=== PATIENT | female | born 1965 | race Caucasian/White ===

== ENCOUNTER 2019-05-21 23:46 | Inpatient (IN) ==
[2019-05-22] MEDS ORDERED: cefTRIAXone SODIUM 1,000 MG/50 ML BAG IV STA (00:04)
[2019-05-22] MEDS ORDERED: SODIUM CHLORIDE 0.9% 1000ML 1,000 ML IV ONE (00:04)
[2019-05-22 00:36] LABS: Basophils # (auto) 0.07 K/uL (0-0.2); Basophils % (auto) 0.8 %; Eosinophils # (auto) 0.41 K/uL (0-0.5); Eosinophils % (auto) 4.8 %; Hematocrit (blood only) 35.7 % (37-47); Hemoglobin 11.9 g/dL (12.0-16.0); Immature Granulocytes # (auto) 0.02 K/uL (0.00-0.02); Immature Granulocytes % (auto) 0.2 %; Lymphocytes # (auto) 1.86 K/uL (1.2-3.4); Lymphocytes % (auto) 21.8 %; Mean Corpuscular Hgb Conc 33.3 g/dL (32-36); Mean Platelet Volume 9.8 fL (7.4-10.4); Monocytes # (auto) 1.05 K/uL (0.11-0.59); Monocytes % (auto) 12.3 %; Neutrophils # (auto) 5.12 K/uL (1.4-6.5); Neutrophils % (auto) 60.1 %; Platelet Count 376 K/uL (130-400); RDW Coefficient of Variation 12.4 % (11.5-14.5); RDW Standard Deviation 42.3 fL (36.4-46.3); Red Blood Count 3.84 M/uL (4.2-5.4); White Blood Count 8.53 K/uL (4.8-10.8)
[2019-05-22 00:54] LABS: Alanine Aminotransferase 93 U/L (12-78); Albumin Level 2.9 gm/dl (3.4-5.0); Aspartate Aminotransferase 29 U/L (15-37); BUN Creatinine Ratio 17.8 (10-20); Bilirubin Direct < 0.1 mg/dl (0-0.2); Blood Urea Nitrogen 10 mg/dl (7-18); Carbon Dioxide 26 mmol/L (21-32); Chloride 108 mmol/L (98-107); Creatinine Clr Calc Pharmacy 109.4 ml/min; Est GFR (African American) 119.6; Est GFR (Non-African American) 103.2; Glucose 111 mg/dl (70-99); Magnesium 2.1 mg/dl (1.8-2.4); Potassium 4.1 mmol/L (3.5-5.1); Sodium 142 mmol/L (136-145)
[2019-05-22 00:57] LABS: Alkaline Phosphatase 325 U/L (45-117); Bilirubin,Total 0.2 mg/dl (0.2-1); Total Protein 7.3 gm/dl (6.4-8.2)
--- NOTE | 2019-05-22 01:43 | History & Physical Report ---
Date of Service May 22, 2019 Assessment & Plan (1) Gram-negative bacteremia: No overt sepsis ? Complicated UTI as source (Of note, two urine cultures without growth.) Rule out spinal osteomyelitis R low back pain complaints Abnormal LFTs to illness Some improvement on today's blood work Transient elevation in the past as per patient GMF Follow blood cultures IV Cefepime ID consult RE gram-negative bacteremia Lumbar spine MRI Further management pending work-up results and ID recommendations. DVT prophylaxis Lovenox subcu Full code History of Present Illness Chief Complaint: Abnormal blood work Primary Care Provider: Víctor Langford MD History obtained from patient and records. 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 Ten days hx achy low right flank pain symptoms, headache, neck pain, fatigue symptoms. No chest pain, no S OB, no cough. Low-grade fever at home. Patient seen at PCP's office last week. Lyme screen and mono test negative. WBC esterase noted on UA. Urine cultures later no growth. Patient started on Bactrim without improvement of symptoms. Patient seen at the ER last week for persistent symptoms. Urinalysis noted to be abnormal. Urine cultures later no growth. Bactrim switched to Keflex for cystitis due to some LFT abnormalities. Patient returned to ER yesterday morning for worsening symptoms with transient hemorrhoidal bleed. CT abdomen pelvis unremarkable. One bottle of blood cultures later showed gram negative rods. Patient requested to return to the emergency room. Given IV Ceftriaxone at the ER. 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 Allergies Allergy/AdvReac Type Severity Reaction Status Date / Time Penicillins AdvReac Mild Hives Unverified 05/22/19 00:18 Home Medications Home Medications Medication Instructions Recorded Confirmed Type No Known Home Medications 05/22/19 05/22/19 History Past Med/Surg History Medical History Varicose vein of leg Social History Preferred Language: Khmer Communication Ability: Effective 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 Beliefs That Will Affect Care: None marital status: Current Living Situation: Spouse Other Information That Helps Us Care for You: No Feels Safe at Home: Yes Safety Concerns: Feels Safe At This Time Smoking Status: Never smoker Hx Alcohol Use: No Hx Substance Use: No Review of Systems Review of Systems: As per HPI, all 10 systems reviewed, all other ROS negative Physical Exam Physical Exam: GENERAL: Slightly uncomfortable, pleasant, no respiratory distress SKIN: Normal color, warm HEENT: [place] palpebral conjunctivae, no ptosis, moist buccal mucosa NECK : Supple, posterior cervical tenderness CHEST : CTA, no tenderness HEART : RRR, no obvious murmurs ABDOMEN: Soft, nontender BACK : R gluteal tenderness, negative straight leg raise test EXTREMITIES : No LE swelling/tenderness, no other conspicuous deformities noted NEUROLOGIC : Coherent, no facial asymmetry, no other gross focality Results & Data Vital Signs (Past 12 Hours) Vital Signs Temp Pulse Resp BP Pulse Ox 05/21/19 23:54 37.2 C 89 18 122/85 97 Laboratory Results Laboratory Results WBC 8.53 K/uL (4.8-10.8) 05/22/19 00:08 RBC 3.84 M/uL (4.2-5.4) L 05/22/19 00:08 Hgb 11.9 g/dL (12.0-16.0) L 05/22/19 00:08 Hct 35.7 % (37-47) L 05/22/19 00:08 MCV 93.0 fL (80-100) 05/22/19 00:08 MCH 31.0 pg (25-34) 05/22/19 00:08 MCHC 33.3 g/dL (32-36) 05/22/19 00:08 RDW Std Deviation 42.3 fL (36.4-46.3) 05/22/19 00:08 RDW Coeff of Jesse 12.4 % (11.5-14.5) 05/22/19 00:08 Plt Count 376 K/uL (130-400) 05/22/19 00:08 MPV 9.8 fL (7.4-10.4) 05/22/19 00:08 Immature Gran % (Auto) 0.2 % 05/22/19 00:08 Neut % (Auto) 60.1 % 05/22/19 00:08 Lymph % (Auto) 21.8 % 05/22/19 00:08 [place] % (Auto) 12.3 % 05/22/19 00:08 Eos % (Auto) 4.8 % 05/22/19 00:08 Baso % (Auto) 0.8 % 05/22/19 00:08 Immature Gran # (Auto) 0.02 K/uL (0.00-0.02) 05/22/19 00:08 Neut # (Auto) 5.12 K/uL (1.4-6.5) 05/22/19 00:08 Lymph # (Auto) 1.86 K/uL (1.2-3.4) 05/22/19 00:08 [place] # (Auto) 1.05 K/uL (0.11-0.59) H 05/22/19 00:08 Eos # (Auto) 0.41 K/uL (0-0.5) 05/22/19 00:08 Baso # (Auto) 0.07 K/uL (0-0.2) 05/22/19 00:08 Sodium 142 mmol/L (136-145) 05/22/19 00:08 Potassium 4.1 mmol/L (3.5-5.1) 05/22/19 00:08 Chloride 108 mmol/L (98-107) H 05/22/19 00:08 Carbon Dioxide 26 mmol/L (21-32) 05/22/19 00:08 Anion Gap 8.0 (3-11) 05/22/19 00:08 BUN 10 mg/dl (7-18) 05/22/19 00:08 Creatinine 0.59 mg/dl (0.6-1.2) L 05/22/19 00:08 Est Cr Clr Drug Dosing 109.4 ml/min 05/22/19 00:08 Est GFR ( Amer) 119.6 05/22/19 00:08 Est GFR (Non-Af Amer) 103.2 05/22/19 00:08 BUN/Creatinine Ratio 17.8 (10-20) 05/22/19 00:08 Glucose 111 mg/dl (70-99) H 05/22/19 00:08 Lactate 1.0 mmol/L (0.4-2.0) 05/22/19 00:08 Calcium 9.0 mg/dl (8.5-10.1) 05/22/19 00:08 Magnesium 2.1 mg/dl (1.8-2.4) 05/22/19 00:08 Total Bilirubin 0.2 mg/dl (0.2-1) 05/22/19 00:08 Direct Bilirubin < 0.1 mg/dl (0-0.2) 05/22/19 00:08 AST 29 U/L (15-37) 05/22/19 00:08 ALT 93 U/L (12-78) H 05/22/19 00:08 Alkaline Phosphatase 325 U/L (45-117) H 05/22/19 00:08 Total Protein 7.3 gm/dl (6.4-8.2) 05/22/19 00:08 Albumin 2.9 gm/dl (3.4-5.0) L 05/22/19 00:08 Lipase 84 U/L (73-393) 05/22/19 00:[address] head initial read no ICH, mass-effect, or edema. No skull fracture. CT cervical spine initial read: Straightening of the cervical spine, no acute fracture.
[2019-05-22] MEDS ORDERED: KETOROLAC TROMETHAMINE 15 MG/ML VIAL IV ONE (01:44)
--- NOTE | 2019-05-22 01:52 | Emergency Department Note ---
Entered by Anali Wong acting as a scribe for AshliRigo bliss History of Present Illness General Chief complaint: Referred by Doctor Stated complaint: BLOOD INFECTION,ANTIBIOTICS,TOLD TO COME IN Time Seen by Provider: 05/22/19 00:00 Source: patient History of Present Illness Provider complaint: flank pain Onset (ago): day(s) 1 Location: back Severity: similar to prior episodes Pain Consistency: + other (persistent) Maximum Pain Intensity: 3 Associated symptoms: + fever/chills and + other (-diarrhea, +bloody stool); no nausea/vomiting The patient is a 53 year old female who presents to the Emergency Room with complaints of persistent flank pain. The patient reports that she was here the other day with similar symptoms and they have not resolved. The patient states that she has a fever and bloody stool. She denies any nausea, vomiting, or diarrhea. Home Medications Home Medications Medication Instructions Recorded Confirmed Type No Known Home Medications 05/22/19 05/22/19 History Allergies Allergy/AdvReac Type Severity Reaction Status Date / Time Penicillins AdvReac Mild Hives Unverified 05/22/19 00:18 Past Med/Surg History Medical History Varicose vein of leg Social History Preferred Language: Bhutanese marital status: Feels Safe at Home: Yes Smoking Status: Never smoker Review of Systems See HPI for pertinent positives & negatives. Physical Exam Vital Signs Vital Signs - 24 hr 05/21/19 23:54 Temperature 37.2 C Temperature Source Oral Sepsis Recent Fever Within 48 Hours Yes Sepsis New/Unexplained Change in Mental Status No Sepsis Action Taken by Nursing No Action Required Pulse Rate 89 Respiratory Rate 18 Respiratory Effort / Characteristics Non-Labored Respiratory Depth Normal Blood Pressure 122/85 Blood Pressure Mean 97 Pulse Oximetry 97 Oxygen Delivery Method Room Air GENERAL: She is oriented to person, place, and time. She appears well-developed and well-nourished. She does not appear distressed. HENT: Exam performed. Head: Normocephalic and atraumatic. Right Ear: External ear normal. No mastoid tenderness. Left Ear: External ear normal. No mastoid tenderness. Mouth/Throat: The oropharynx is clear and moist. No trismus in the jaw. No dental abscesses or uvula swelling. No oropharyngeal exudate or tonsillar abscesses. EYES: Conjunctivae and EOM are normal. Pupils are equal, round, and reactive to light. Right eye exhibits no discharge. Left eye exhibits no discharge. No scleral icterus. NECK: Normal range of motion. Neck supple. No JVD present. No spinous process tenderness present. No carotid bruit present. No rigidity. No tracheal deviation and normal range of motion present. No Brudzinski's sign and no Kernig's sign noted. CV: Normal rate, regular rhythm, normal heart sounds and intact distal pulses. There is no peripheral edema. Palpable radial pulses bue. PULM/CHEST: Effort normal and breath sounds normal. No respiratory distress. No stridor. She has no wheezes. She has no rales. Chest Wall: She exhibits no tenderness. ABD: The abdomen is soft. Bowel sounds are normal. She has no distension. No mass is present. There is no tenderness. There is no rebound, no guarding, no Coppola's sign and no tenderness at McBurney's point. Rovsig negative MUSC/SKEL: Normal range of motion. There is no peripheral edema, tenderness or deformity. LYMPH: No cervical adenopathy. NEURO: She is alert and oriented to person, place, and time. She has normal strength. No cranial nerve deficit or sensory deficit. Coordination and gait normal. GCS eye subscore is 4. GCS verbal subscore is 5. GCS motor subscore is 6. cerbellar tests wnl. SKIN: Skin is warm and dry. She is not diaphoretic. PSYCH: She has a normal mood and affect. Her behavior is normal. Judgment and thought content normal. Course 0001: The patient was evaluated in room A9B, and a complete history and physical examination were performed. EMR reviewed, the patient was seen yesterday and the day before in the ED for flank pain and fevers. She had a normal WBC. She was switched from Bactrim to Keflex. The CT done on 05/21/19 was negative and the blood culture that was conducted on May 21 grew out gram negative bacilli which is why the patient was called back to the emergency department. The patient will be admitted to Dr. Best. She was given Rocephin for the gram-negative bacilli in her blood. 0009: [facility] He will evaluate the patient for further management. Administered Medications Discontinued Medications Sodium Chloride (Nss 1000ml) 1,000 mls @ 999 mls/hr IV .[id number] ONE Stop: 05/22/19 01:04 Last Admin: 05/22/19 00:24 Dose: 999 mls/hr Documented by: [id number] Ceftriaxone Sodium (Rocephin) 1,000 mg in 50 mls @ 100 mls/hr IV NOW STA Stop: 05/22/19 00:33 Last Admin: 05/22/19 00:27 Dose: 100 mls/hr Documented by: [id number] Medical Decision Making Medical Records Attestation: I reviewed the patient's medical records. Home Medications Current Medication List: was personally reviewed by me Laboratory Data Attestation: I reviewed the patient's lab results. Result diagrams: 05/22/19 00:08 05/22/19 00:08 Lab Results 05/22/19 05/22/19 05/22/19 Range/Units 00:08 00:08 00:08 WBC 8.53 (4.8-10.8) K/uL RBC 3.84 L (4.2-5.4) M/uL Hgb 11.9 L (12.0-16.0) g/dL Hct 35.7 L (37-47) % MCV 93.0 (80-100) fL MCH 31.0 (25-34) pg MCHC 33.3 (32-36) g/dL RDW Std Deviation 42.3 (36.4-46.3) fL RDW Coeff of Jesse 12.4 (11.5-14.5) % Plt Count 376 (130-400) K/uL MPV 9.8 (7.4-10.4) fL Immature Gran % (Auto) 0.2 % Neut % (Auto) 60.1 % Lymph % (Auto) 21.8 % [place] % (Auto) 12.3 % Eos % (Auto) 4.8 % Baso % (Auto) 0.8 % Immature Gran # (Auto) 0.02 (0.00-0.02) K/uL Neut # (Auto) 5.12 (1.4-6.5) K/uL Lymph # (Auto) 1.86 (1.2-3.4) K/uL [place] # (Auto) 1.05 H (0.11-0.59) K/uL Eos # (Auto) 0.41 (0-0.5) K/uL Baso # (Auto) 0.07 (0-0.2) K/uL Sodium 142 (136-145) mmol/L Potassium 4.1 (3.5-5.1) mmol/L Chloride 108 H (98-107) mmol/L Carbon Dioxide 26 (21-32) mmol/L Anion Gap 8.0 (3-11) BUN 10 (7-18) mg/dl Creatinine 0.59 L (0.6-1.2) mg/dl Est Cr Clr Drug Dosing 109.4 ml/min Est GFR ( Amer) 119.6 Est GFR (Non-Af Amer) 103.2 BUN/Creatinine Ratio 17.8 (10-20) Glucose 111 H (70-99) mg/dl Lactate 1.0 (0.4-2.0) mmol/L Calcium 9.0 (8.5-10.1) mg/dl Magnesium 2.1 (1.8-2.4) mg/dl Total Bilirubin 0.2 (0.2-1) mg/dl Direct Bilirubin < 0.1 (0-0.2) mg/dl AST 29 (15-37) U/L ALT 93 H (12-78) U/L Alkaline Phosphatase 325 H (45-117) U/L Total Protein 7.3 (6.4-8.2) gm/dl Albumin 2.9 L (3.4-5.0) gm/dl Lipase 84 (73-393) U/L Blood Pressure Blood Pressure Findings: Normal blood pressure Blood Pressure Disposition: did not require urgent referral MDM Narrative 0001: The patient was evaluated in room A9B, and a complete history and physical examination were performed. EMR reviewed, the patient was seen yesterday and the day before in the ED for flank pain and fevers. She had a normal WBC. She was switched from Bactrim to Keflex. The CT done on 05/21/19 was negative and the blood culture that was conducted on May 21 grew out gram negative bacilli which is why the patient was called back to the emergency department. The patient will be admitted to Dr. Best. She was given Rocephin for the gram-ne gative bacilli in her blood. 0009: I reviewed the patient's case with Dr. Best- [facility] Hospitalist. He will evaluate the patient for further management. Impression & Plan Bacteremia Discharge Plan Visit Data Chief Complaint: Referred by Doctor Stated Complaint: BLOOD INFECTION,ANTIBIOTICS,TOLD TO COME IN ED Provider: Rigo Cornelius Discharge Problem: Bacteremia Patient Disposition: Being Evaluated by Hospitalist Forms Stand Alone Forms: My [facility] Prescriptions Prescriptions: No Action No Known Home Medications RF: 0 Referrals Referrals: Víctor Langford MD [Primary Care Provider] - The scribe's documentation has been prepared under my direction and personally r eviewed by me in its entirety. I confirm that the note above accurately reflects all work, treatment, procedures, and medical decision making performed by me.
[2019-05-22 02:47] LABS: Influenza A virus by PCR Neg for Influ A (Neg); Influenza B virus by PCR Neg for Influ B (Neg)
[2019-05-22] MEDS ORDERED: GADOBUTROL 65ML VIAL IV PRN (03:54)
[2019-05-22] MEDS ORDERED: KETOROLAC TROMETHAMINE 15 MG/ML VIAL IV PRN (04:07)
[2019-05-22] MEDS ORDERED: LORazepam 0.25 MG/0.5 ML VIAL IV PRN (04:07)
[2019-05-22] MEDS ORDERED: TRAMADOL HCL 50 MG TABLET PO PRN (04:07)
[2019-05-22] MEDS ORDERED: PROMETHAZINE HCL 12.5 MG in SODIUM CHLORIDE 0.9% 50 ML IV PRN (04:07)
[2019-05-22] MEDS ORDERED: ACETAMINOPHEN 325 MG TAB PO PRN ×2 (04:07)
[2019-05-22] MEDS ORDERED: LACTATED RINGER'S 1,000 ML IV ONE (04:07)
[2019-05-22 04:33] LABS: Creatine Kinase 79 U/L (26-192)
[2019-05-22] MEDS: IBUPROFEN 200 MG TAB PO PRN (04:55)
[2019-05-22] MEDS: CEFEPIME 2,000 MG in SYRINGE 7.5 ML IV SCH ×2 (05:51→17:54)
[2019-05-22 06:10] LABS: Estimated Average Glucose 123 mg/dl; Hemoglobin A1C 5.9 % (4.5-5.6)
[2019-05-22 06:53] LABS: Prothrombin Time 10.3 Seconds (9.0-12.0)
--- NOTE | 2019-05-22 07:08 | CT Scan Report ---
HEAD CT NONCONTRAST CT DOSE: 1073.35 mGy.cm HISTORY: Headache. TECHNIQUE: Multiaxial CT images of the head were performed without the use of intravenous contrast. A utomated exposure control was utilized for this study. A dose lowering technique was utilized adheri ng to the principles of ALARA. Comparison: None. Findings: Mild mucosal thickening within the ethmoid air cells. The mastoid air cells are clear. The calvarium and skull base are intact. The ventricles and sulci are within normal limits. There is no m ass, hematoma, midline shift, or acute infarct. Impression: No acute intracranial abnormality. Electronically signed by: Nish Pope M.D. 05/22/2019 7:07 AM
--- NOTE | 2019-05-22 07:11 | CT Scan Report ---
CERVICAL SPINE CT CT DOSE: HISTORY: neck pain TECHNIQUE: Multiaxial CT images of the cervical spine were performed and reformatted in the sagittal and coronal plane without the use of contrast. A dose lowering technique was utilized adhering to th e principles of ALARA. COMPARISON: None. FINDINGS: No fractures. No subluxation. Prevertebral soft tissues and the C1-C2 interval are intact. No pneumothorax. Straightening of the cervical spine. Mild disc space narrowing at C4-C5 and moderate disc space narrowing at C5-C6 and C6-C7 with small endplate osteophytes. IMPRESSION: No fractures within the cervical spine. Electronically signed by: Nish Pope M.D. 05/22/2019 7:10 AM
--- NOTE | 2019-05-22 07:22 | Magnetic Resonance Report ---
MR lumbar spine wo/w con CLINICAL HISTORY: Low back pain. Bacteremia. Possible osteomyelitis. Fever, chills. Bilateral leg rad iculopathy. TECHNIQUE: Sagittal and axial T1, T2 and STIR images were obtained. Images were acquired before and a fter the administration of 7.1 cc of intravenous Gadavist. COMPARISON STUDY: No previous studies for comparison. OBSERVATIONS: There is a possible transitional vertebra. The numbering scheme utilized was annotated on the PACS im ages. The vertebral bodies and posterior elements appear intact. There is no abnormal bony signal present t o suggest a marrow replacement process. L1-2: No disc protrusions or extrusions. No evidence of spinal canal or neural foraminal compromise. L2-3: No disc protrusions or extrusions. No evidence of spinal canal or neural foraminal compromise. L3-4: There is a minimal circumferential disc bulge. There is no significant spinal or foraminal sten osis. L4-5: There is a grade 1 spondylolisthesis of L4 on L5. There is a mild circumferential disc bulge. T here is facet joint arthropathy. There is a slight trefoil configuration of the thecal sac. There is minimal bilateral foraminal narrowing. L5-S1: There is a mild circumferential disc bulge. There is a grade 1 spondylolisthesis of L5 on S1. There is mild facet joint arthropathy. There is a slight trefoil appearance of the thecal sac. There is no significant foraminal narrowing The conus medullaris and cauda equina appear normal. There are no pathologically enhancing lesions. There is no MRI evidence of discitis or osteomyelitis. IMPRESSION: 1. No evidence of discitis or osteomyelitis 2. Mild multilevel spondylytic changes 3. Transitional vertebra Electronically signed by: Gonzalez Dickson M.D. 05/22/2019 7:21 AM
[2019-05-22] MEDS: ENOXAPARIN INJ 30 MG/0.3 ML SYR SQ SCH (08:45)
[2019-05-22] MEDS ORDERED: CEFEPIME CONSULT ACTIVE PRN (09:00)
--- NOTE | 2019-05-22 11:03 | Infectious Disease Consult ---
Date of Consultation May 22, 2019 Assessment & Plan (1) Gram-negative bacteremia: 53-year-old female with gram-negative bacteremia, suspect urinary tract focus given flank pain and other symptoms. Cultures may be falsely negative because of prior antibiotic use. For now, appears to be clinically improving on cefepime, so would continue until final identification and sensitivity. Length of IV antibiotics will be determined by culture results and clinical response. Will follow. History of Present Illness Reason for Consultation: Bacteremia Attending Physician: Oscar Giraldo MD History of Present Illness 53-year-old female in prior good health, remote history of urinary tract infection, was well until 10 days prior to admission when she began to feel unwell with fever, chills, body aches, and right flank pain. Eventually saw her primary care physician who prescribed Bactrim but symptoms progressively worsened, and patient came to the emergency department was given a dose of ceftriaxone and discharged on cephalexin. She was called back when blood cultures grew gram-negative bacilli. She is now been started on cefepime. Feels slightly better today. Abdominal pain improved, now 2 out of 10 in intensity. Follow-up urine cultures negative. Abdominal CT unremarkable for intra-abdominal pathology. Has had low back pain, MRI scan of the spine shows no evidence of infection. Allergies Allergy/AdvReac Type Severity Reaction Status Date / Time Penicillins AdvReac Mild Hives Unverified 05/22/19 00:18 Home Medications Home Medications Medication Instructions Recorded Confirmed Type No Known Home Medications 05/22/19 05/22/19 History Patient History Medical History Varicose vein of leg Social History Preferred Language: Faroese Communication Ability: Effective Title Attorney Required: No Beliefs That Will Affect Care: None marital status: Current Living Situation: Spouse Other Information That Helps Us Care for You: No Feels Safe at Home: Yes Safety Concerns: Feels Safe At This Time Smoking Status: Never smoker Hx Alcohol Use: No Hx Substance Use: No Review of Systems Review of Systems: All systems reviewed & are unremarkable except as noted in HPI & below Physical Exam Constitutional: WD/WN, vitals as above comfortable; no acute distress Eyes: PERRL, conjunctivae normal, anicteric sclerae ENMT: external ear and nose normal, oropharynx normal Neck: trachea midline, no thyromegaly neck nontender Respiratory: normal respiratory effort, lungs clear to auscultation normal percussion; does not use accessory muscles Cardiovascular: Rate/Rhythm: regular rate and regular rhythm Heart Sounds: normal S1 and normal S2; no gallop, no murmur and no cardiac rub Vessels: normal peripheral pulses; no JVD Gastrointestinal (Abdomen): Inspection/Auscultation: abdomen normal to inspection and normal bowel sounds Percussion/Palpation: + abdomen tender; no hepatosplenomegaly and no abdominal mass Musculoskeletal: no cyanosis or clubbing, extremities motor strength 5/5 Spine: thoracic spine normal to inspection and lumbar spine normal to inspection; no cervical spinal tenderness Skin: no rashes, warm and dry normal turgor; no lesions Neurologic: patellar DTR's 2+ bilat, sensation intact no focal motor deficits Psychiatric: A+Ox3, euthymic affect Orientation: cooperative Lymphatic: no cervical or axillary lymphadenopathy no inguinal lymphadenopathy Results & Data Vital Signs (Past 12 Hours) Vital Signs Temp Pulse Pulse Pulse Resp BP BP 05/22/19 07:20 36.9 C 76 18 112/70 05/22/19 04:00 36.9 C 91 H 16 114/77 05/22/19 02:13 17 114/67 05/22/19 01:51 89 22 139/94 05/21/19 23:54 37.2 C 89 18 122/85 Pulse Ox 05/22/19 07:20 96 05/22/19 04:00 95 05/22/19 02:13 96 05/22/19 01:51 98 05/21/19 23:54 97 Laboratory Results Short CBC 05/22/19 Range/Units 00:08 WBC 8.53 (4.8-10.8) K/uL Hgb 11.9 L (12.0-16.0) g/dL Hct 35.7 L (37-47) % Plt Count 376 (130-400) K/uL BMP 05/22/19 00:08 Sodium 142 Potassium 4.1 Chloride 108 H Carbon Dioxide 26 BUN 10 Creatinine 0.59 L Glucose 111 H Calcium 9.0 Cardiac Enzymes 05/22/19 Range/Units 00:08 Total Creatine Kinase 79 (26-192) U/L Liver Function 05/22/19 Range/Units 00:08 Total Bilirubin 0.2 (0.2-1) mg/dl Direct Bilirubin < 0.1 (0-0.2) mg/dl AST 29 (15-37) U/L ALT 93 H (12-78) U/L Alkaline Phosphatase 325 H (45-117) U/L Albumin 2.9 L (3.4-5.0) gm/dl Diagnostic Findings MR lumbar spine wo/w con CLINICAL HISTORY: Low back pain. Bacteremia. Possible osteomyelitis. Fever, chills. Bilateral leg radiculopathy. TECHNIQUE: Sagittal and axial T1, T2 and STIR images were obtained. Images were acquired before and after the administration of 7.1 cc of intravenous Gadavist. COMPARISON STUDY: No previous studies for comparison. OBSERVATIONS: There is a possible transitional vertebra. The numbering scheme utilized was annotated on the PACS images. The vertebral bodies and posterior elements appear intact. There is no abnormal bony signal present to suggest a marrow replacement process. L1-2: No disc protrusions or extrusions. No evidence of spinal canal or neural foraminal compromise. L2-3: No disc protrusions or extrusions. No evidence of spinal canal or neural foraminal compromise. L3-4: There is a minimal circumferential disc bulge. There is no significant spinal or foraminal stenosis. L4-5: There is a grade 1 spondylolisthesis of L4 on L5. There is a mild circumferential disc bulge. There is facet joint arthropathy. There is a slight trefoil configuration of the thecal sac. There is minimal bilateral foraminal narrowing. L5-S1: There is a mild circumferential disc bulge. There is a grade 1 spondylolisthesis of L5 on S1. There is mild facet joint arthropathy. There is a slight trefoil appearance of the thecal sac. There is no significant foraminal narrowing The conus medullaris and cauda equina appear normal. There are no pathologically enhancing lesions. There is no MRI evidence of discitis or osteomyelitis. IMPRESSION: 1. No evidence of discitis or osteomyelitis 2. Mild multilevel spondylytic changes 3. Transitional vertebra Electronically signed by: Gonzalez Dickson M.D. 05/22/2019 7:21 AM PG Care Time/CCT Total # of Minutes Spent Total Time Spent with Patient: Total time spent is greater than 50% in coordinat ion of care (as documented) at patient's floor/unit and/or counseling patient:
[2019-05-22] MEDS ORDERED: HYDROmorphone INJ 0.5 MG/0.5 ML SYR IV PRN (12:43)
--- NOTE | 2019-05-22 12:57 | Hospitalist Progress Note ---
Date of Service May 22, 2019 Assessment & Plan (1) Gram-negative bacteremia: gram negative bacteremia from suspected urinary tract infection -53-year-old female with gram-negative bacteremia, suspect urinary tract focus given flank pain and other symptoms -Urine Cultures may be falsely negative because of prior antibiotic use as outpatient -continue empiric antibiotic of cefepime cefepime until final identification and sensitivity. Length of IV antibiotics will be determined by culture results and clinical response. -imaging to date Abdomen CT: There are no acute infectious or inflammatory findings seen in the abdomen or pelvis Lumbar spine MRI: No evidence of discitis or osteomyelitis. Mild multilevel spondylytic changes CXR: No active disease in the chest Cervical Spine CT: No fractures within the cervical spine Head CT: No acute intracranial abnormality Transaminitis -elevated ALT and alkaline phosphatase -monitor -no abdominal pain DVT prophylaxis: Lovenox Full code Subjective Patient reports of right lower back pain that is relieved by Toradol. denies dysuria. no abdomen pain. no chest pain. no palpitations. no shortness of breath. no vomiting. no diarrhea Physical Exam Constitutional: cooperative Eyes: PERRL, conjunctivae normal, anicteric sclerae EOM intact bilaterally ENMT: external ear and nose normal, oropharynx normal Neck: normal visual inspection Respiratory: normal respiratory effort, lungs clear to auscultation Cardiovascular: RRR, no murmur, no edema Gastrointestinal (Abdomen): normal bowel sounds, soft, nontender, no hepatosplenomegaly Musculoskeletal: Head/Neck/Chest: normocephalic and head atraumatic Neurologic: PERRL, EOMI, accommodation nl, no face palsy, no dysarthria CN's II-XI intact bilaterally Psychiatric: A+Ox3, euthymic affect Results & Data Vital Signs (Past 12 Hours) Vital Signs Temp Pulse Pulse Resp BP BP Pulse Ox 05/22/19 07:20 36.9 C 76 18 112/70 96 05/22/19 04:00 36.9 C 91 H 16 114/77 95 05/22/19 02:13 17 114/67 96 05/22/19 01:51 89 22 139/94 98
[2019-05-22] MEDS: KETOROLAC TROMETHAMINE 15 MG/ML VIAL IV PRN ×2 (13:36→20:21)
[2019-05-22] MEDS: ACETAMINOPHEN 325 MG TAB PO PRN (21:39)
[2019-05-23] MEDS: ACETAMINOPHEN 325 MG TAB PO PRN (03:04)
[2019-05-23] MEDS: KETOROLAC TROMETHAMINE 15 MG/ML VIAL IV PRN ×3 (04:05→21:24)
[2019-05-23] MEDS: CEFEPIME 2,000 MG in SYRINGE 7.5 ML IV SCH ×3 (05:57→18:31)
[2019-05-23 06:48] LABS: Basophils # (auto) 0.06 K/uL (0-0.2); Basophils % (auto) 0.6 %; Eosinophils % (auto) 5.3 %; Hematocrit (blood only) 36.2 % (37-47); Hemoglobin 12.2 g/dL (12.0-16.0); Immature Granulocytes # (auto) 0.02 K/uL (0.00-0.02); Immature Granulocytes % (auto) 0.2 %; Lymphocytes # (auto) 1.96 K/uL (1.2-3.4); Lymphocytes % (auto) 20.9 %; Mean Corpuscular Hgb Conc 33.7 g/dL (32-36); Mean Corpuscular Volume 94.8 fL (80-100); Mean Platelet Volume 9.7 fL (7.4-10.4); Monocytes % (auto) 9.6 %; Neutrophils # (auto) 5.94 K/uL (1.4-6.5); Neutrophils % (auto) 63.4 %; Platelet Count 379 K/uL (130-400); RDW Coefficient of Variation 12.4 % (11.5-14.5); RDW Standard Deviation 42.4 fL (36.4-46.3); Red Blood Count 3.82 M/uL (4.2-5.4); White Blood Count 9.38 K/uL (4.8-10.8)
[2019-05-23 07:24] LABS: Albumin Level 2.7 gm/dl (3.4-5.0); BUN Creatinine Ratio 16.6 (10-20); Calcium 9.1 mg/dl (8.5-10.1); Est GFR (Non-African American) 104.4
[2019-05-23 07:28] LABS: Albumin Globulin Ratio 0.6 (0.9-2); Bilirubin,Total 0.2 mg/dl (0.2-1); Globulin 4.3 gm/dl (2.5-4.0)
[2019-05-23] MEDS: ENOXAPARIN INJ 30 MG/0.3 ML SYR SQ SCH (07:39)
--- NOTE | 2019-05-23 14:23 | Infectious Disease Progress Nt ---
Date of Service May 23, 2019 Assessment & Plan (1) Gram-negative bacteremia: continue cefepime for now, gpc likely anaerobic. will follow. If she remains clinically stable and afebrile overnight and repeat cultures negative, she could be d/c on po omnicef 300mg po bid to complete 14 days. Subjective pt seen in [facility], remains on IV cefepime, tolerating well. still with right flank pain, unchanged. Blood cultures growing E. coli and now gpc in clusters, further ID pending. MRI spine negative. ambulating in room on my exam, asking to go home. afebrile ovrernight.wbc 9.3, creat 0.5. repeat cultures pending, eating well. no n/v/d. denies f/c Review of Systems Review of Systems: All systems reviewed & are unremarkable except as noted in HPI & below Physical Exam Constitutional: WD/WN, vitals as above Eyes: PERRL, conjunctivae normal, anicteric sclerae ENMT: external ear and nose normal, oropharynx normal Neck: normal visual inspection Respiratory: normal respiratory effort, lungs clear to auscultation Cardiovascular: RRR, no murmur, no edema Gastrointestinal (Abdomen): normal bowel sounds, soft, nontender, no hepatosplenomegaly Musculoskeletal: no cyanosis or clubbing, extremities motor strength 5/5 Skin: no rashes, warm and dry Psychiatric: A+Ox3, euthymic affect Results & Data Vital Signs (Past 12 Hours) Vital Signs Temp Pulse Resp BP Pulse Ox 05/23/19 07:12 37.0 C 72 18 116/74 94 PG Care Time/CCT Total # of Minutes Spent Total Time Spent with Patient: Total time spent is greater than 50% in coordination of care (as documented) at patient's floor/unit and/or counseling patient:
--- NOTE | 2019-05-23 15:39 | Hospitalist Progress Note ---
Date of Service May 23, 2019 Assessment & Plan (1) Gram-negative bacteremia: gram negative bacteremia (E.coli bacteremia) from suspected urinary tract infection -53-year-old female with gram-negative bacteremia, suspect urinary tract focus given flank pain and other symptoms -Urine Cultures may be falsely negative because of prior antibiotic use as outpatient -patient was started on empiric cefepime on admission, gram negative bacteremia speciated to E.coli that is resistant to Ampicillin/Gentamicin/Bactrim and also blood culture growing Probable anaerobic gram positive cocci -as per recent ID recommendations,continue cefepime for now -a repeat second blood culture sent on 05/23/19 -Infectious disease consult suggests that If she remains clinically stable and afebrile overnight and repeat cultures negative, she could be discharge on oral Omnicef (cefdinir) 300mg BID to complete 14 days. Transaminitis -elevated ALT and alkaline phosphatase; ALT downtrending -monitor -no abdominal pain History of hemorrhoids -no acute decrease in blood count so far other hospital imaging results on admission day Abdomen CT: There are no acute infectious or inflammatory findings seen in the abdomen or pelvis Lumbar spine MRI: No evidence of discitis or osteomyelitis. Mild multilevel spondylytic changes CXR: No active disease in the chest Cervical Spine CT: No fractures within the cervical spine Head CT: No acute intracranial abnormality DVT prophylaxis: Lovenox Full code Subjective patient able to ambulate. no fevers. no abdomen pain. right low back pain appears improved. no vomiting. no chest pain. no shortness of breath. no dizziness. no headache. discussed antibiotic course and plans at length with the patient Physical Exam Constitutional: cooperative Eyes: PERRL, conjunctivae normal, anicteric sclerae EOM intact bilaterally ENMT: external ear and nose normal, oropharynx normal Neck: normal visual inspection Respiratory: normal respiratory effort, lungs clear to auscultation Cardiovascular: RRR, no murmur, no edema Gastrointestinal (Abdomen): normal bowel sounds, soft, nontender, no hepatosplenomegaly Musculoskeletal: Head/Neck/Chest: normocephalic and head atraumatic Neurologic: PERRL, EOMI, accommodation nl, no face palsy, no dysarthria CN's II-XI intact bilaterally Psychiatric: A+Ox3, euthymic affect Results & Data Vital Signs (Past 12 Hours) Vital Signs Temp Pulse Resp BP Pulse Ox 05/23/19 15:05 37.3 C 79 17 119/76 95 05/23/19 07:12 37.0 C 72 18 116/74 94
[2019-05-24] MEDS: KETOROLAC TROMETHAMINE 15 MG/ML VIAL IV PRN (05:14)
[2019-05-24] MEDS: CEFEPIME 2,000 MG in SYRINGE 7.5 ML IV SCH ×2 (06:24→18:17)
[2019-05-24] MEDS: ENOXAPARIN INJ 30 MG/0.3 ML SYR SQ SCH (07:27)
[2019-05-24 07:53] LABS: Basophils # (auto) 0.07 K/uL (0-0.2); Basophils % (auto) 0.7 %; Eosinophils # (auto) 0.43 K/uL (0-0.5); Hematocrit (blood only) 36.3 % (37-47); Hemoglobin 12.2 g/dL (12.0-16.0); Immature Granulocytes # (auto) 0.02 K/uL (0.00-0.02); Immature Granulocytes % (auto) 0.2 %; Lymphocytes % (auto) 20.5 %; Mean Corpuscular Hgb Conc 33.6 g/dL (32-36); Mean Corpuscular Volume 94.5 fL (80-100); Mean Platelet Volume 9.7 fL (7.4-10.4); Monocytes # (auto) 1.03 K/uL (0.11-0.59); Monocytes % (auto) 9.6 %; Neutrophils # (auto) 6.99 K/uL (1.4-6.5); Platelet Count 406 K/uL (130-400); RDW Coefficient of Variation 12.2 % (11.5-14.5); RDW Standard Deviation 41.8 fL (36.4-46.3); Red Blood Count 3.84 M/uL (4.2-5.4); White Blood Count 10.74 K/uL (4.8-10.8)
[2019-05-24 08:28] LABS: BUN Creatinine Ratio 19.6 (10-20); Calcium 9.2 mg/dl (8.5-10.1); Creatinine Clr Calc Pharmacy 99.1 ml/min; Est GFR (African American) 115.8; Est GFR (Non-African American) 99.9; Potassium 4.3 mmol/L (3.5-5.1)
--- NOTE | 2019-05-24 14:49 | Infectious Disease Progress Nt ---
Date of Service May 24, 2019 Assessment & Plan (1) Gram-negative bacteremia: continue cefepime for now repeat culture negative. she remains clinically stable and afebrile she could be d/c on po omnicef 300mg po bid to complete 14 days. ok for d/c from ID standpoint when otherwise stable. Subjective pt not in room at time of my exam. She remains afebrile. repeat cultures negative. tolerating abx. Results & Data Vital Signs (Past 12 Hours) Vital Signs Temp Pulse Resp BP Pulse Ox 05/24/19 07:46 36.6 C 77 16 114/74 95 Laboratory Results Microbiology 05/23/19 06:22 Blood Aerobic Blood Culture - Preliminary No growth in Aerobic bottle after 24 hours. 05/23/19 06:22 Blood Anaerobic Blood Culture - Preliminary No growth in Anaerobic bottle after 24 hours. 05/23/19 06:33 Blood Aerobic Blood Culture - Preliminary No growth in Aerobic bottle after 24 hours. 05/23/19 06:33 Blood Anaerobic Blood Culture - Preliminary No growth in Anaerobic bottle after 24 hours. PG Care Time/CCT Total # of Minutes Spent Total Time Spent with Patient: Total time spent is greater than 50% in coordination of care (as documented) at patient's floor/unit and/or counseling patient:
--- NOTE | 2019-05-24 15:37 | Hospitalist Progress Note ---
Date of Service May 24, 2019 Assessment & Plan (1) Gram-negative bacteremia: gram negative bacteremia (E.coli bacteremia) from suspected urinary tract infection -53-year-old female with gram-negative bacteremia, suspect urinary tract focus given flank pain and other symptoms -Urine Cultures may be falsely negative because of prior antibiotic use as outpatient -patient was started on empiric cefepime on admission, gram negative bacteremia speciated to E.coli that is resistant to Ampicillin/Gentamicin/Bactrim and also blood culture growing Probable anaerobic gram positive cocci -as per recent ID recommendations,continue cefepime for now -a repeat second blood culture sent on 05/23/19 with no growth to date -as per infectious disease recommendations, patient may be transitioned to oral Omnicef (cefdinir) 300mg BID to complete 14 days -patient will get night time dose of cefepime on 05/24/19 and then she is requesting to be discharged to take oral Omnicef (cefdinir) 300mg BID to complete 14 days at home. Prescriptions of antibiotic including anti- inflammatories of acetaminophen 325 mg every 6 hours as needed for pain or fever and ibuprofen 200 mg every 6 hours as needed for moderate or severe pain have been electronically sent to patient's pharmacy [facility], [place] -Patient should follow up with primary care doctor 05/29/2019 11:20 AM Provider Víctor Langford MD Department Family Practice [facility] in case of any further blood culture results from 05/21/19 or 05/23/19 which may change course of antibiotic treatment or if further symptoms of fever and back pain when on cefdinir antibiotic Transaminitis (resolving) -elevated ALT and alkaline phosphatase on presentation; ALT has normalized -no abdominal pain -Patient should follow up with primary care doctor to repeat liver enzyme tests History of hemorrhoids -no acute decrease in blood count so far -Patient should follow up with primary care doctor to repeat CBC other hospital imaging results on admission day Abdomen CT: There are no acute infectious or inflammatory findings seen in the abdomen or pelvis Lumbar spine MRI: No evidence of discitis or osteomyelitis. Mild multilevel spondylytic changes CXR: No active disease in the chest Cervical Spine CT: No fractures within the cervical spine Head CT: No acute intracranial abnormality DVT prophylaxis: Lovenox daily was given as DVT prophylaxis daily during hospital stay Discharge Diagnosis: gram negative bacteremia (E.coli bacteremia) from suspected urinary tract infection, Transaminitis (resolving), History of hemorrhoids Subjective right low back pain has improved significantly. no fever. no abdomen pain. no vomiting. no dizziness. no lightheadedness. no chest pain. no shortness of breath. Physical Exam Constitutional: cooperative Eyes: PERRL, conjunctivae normal, anicteric sclerae EOM intact bilaterally ENMT: external ear and nose normal, oropharynx normal Neck: normal visual inspection Respiratory: normal respiratory effort, lungs clear to auscultation Cardiovascular: RRR, no murmur, no edema Gastrointestinal (Abdomen): normal bowel sounds, soft, nontender, no hepatosplenomegaly Musculoskeletal: Head/Neck/Chest: normocephalic and head atraumatic Neurologic: PERRL, EOMI, accommodation nl, no face palsy, no dysarthria CN's II-XI intact bilaterally Psychiatric: A+Ox3, euthymic affect Results & Data Vital Signs (Past 12 Hours) Vital Signs Temp Pulse Resp BP Pulse Ox 05/24/19 07:46 36.6 C 77 16 114/74 95
--- NOTE | 2019-05-24 15:50 | Discharge Summary ---
Date of Service May 24, 2019 Admission HPI Per Admitting Provider History obtained from patient and records. 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 Ten days hx achy low right flank pain symptoms, headache, neck pain, fatigue symptoms. No chest pain, no S OB, no cough. Low-grade fever at home. Patient seen at PCP's office last week. Lyme screen and mono test negative. WBC esterase noted on UA. Urine cultures later no growth. Patient started on Bactrim without improvement of symptoms. Patient seen at the ER last week for persistent symptoms. Urinalysis noted to be abnormal. Urine cultures later no growth. Bactrim switched to Keflex for cystitis due to some LFT abnormalities. Patient returned to ER yesterday morning for worsening symptoms with transient hemorrhoidal bleed. CT abdomen pelvis unremarkable. One bottle of blood cultures later showed gram negative rods. Patient requested to return to the emergency room. Given IV Ceftriaxone at the ER. 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 Admission Exam Per Admitting Provider GENERAL: Slightly uncomfortable, pleasant, no respiratory distress SKIN: Normal color, warm HEENT: [place] palpebral conjunctivae, no ptosis, moist buccal mucosa NECK : Supple, posterior cervical tenderness CHEST : CTA, no tenderness HEART : RRR, no obvious murmurs ABDOMEN: Soft, nontender BACK : R gluteal tenderness, negative straight leg raise test EXTREMITIES : No LE swelling/tenderness, no other conspicuous deformities noted NEUROLOGIC : Coherent, no facial asymmetry, no other gross focality Principal Diagnosis gram negative bacteremia (E.coli bacteremia) from suspected urinary tract infection, Transaminitis (resolving), History of hemorrhoids Discharge Exam Constitutional cooperative Eyes PERRL, conjunctivae normal, anicteric sclerae EOM intact bilaterally ENMT external ear and nose normal, oropharynx normal Neck normal visual inspection Respiratory normal respiratory effort, lungs clear to auscultation Cardiovascular RRR, no murmur, no edema Gastrointestinal (Abdomen) normal bowel sounds, soft, nontender, no hepatosplenomegaly Musculoskeletal Head/Neck/Chest: normocephalic and head atraumatic Neurologic PERRL, EOMI, accommodation nl, no face palsy, no dysarthria CN's II-XI intact bilaterally Psychiatric A+Ox3, euthymic affect Discharge Data Allergies Allergy/AdvReac Type Severity Reaction Status Date / Time Penicillins AdvReac Mild Hives Unverified 05/22/19 00:18 Consultations 05/22/19 00:05 ED Decision to Admit Stat 05/22/19 04:07 Consult Infectious Diseases Routine Ordered Studies 05/22/19 01:41 CT cervical spine wo con Urgent CT head/brain wo con Urgent MR lumbar spine wo/w con Urgent Hospital Course (1) Gram-negative bacteremia: gram negative bacteremia (E.coli bacteremia) from suspected urinary tract infection -53-year-old female with gram-negative bacteremia, suspect urinary tract focus given flank pain and other symptoms -Urine Cultures may be falsely negative because of prior antibiotic use as outpatient -patient was started on empiric cefepime on admission, gram negative bacteremia speciated to E.coli that is resistant to Ampicillin/Gentamicin/Bactrim and also blood culture growing Probable anaerobic gram positive cocci -as per recent ID recommendations,continue cefepime for now -a repeat second blood culture sent on 05/23/19 with no growth to date -as per infectious disease recommendations, patient may be transitioned to oral Omnicef (cefdinir) 300mg BID to complete 14 days -patient will get night time dose of cefepime on 05/24/19 and then she is requesting to be discharged to take oral Omnicef (cefdinir) 300mg BID to complete 14 days at home. Prescriptions of antibiotic including anti- inflammatories of acetaminophen 325 mg every 6 hours as needed for pain or fever and ibuprofen 200 mg every 6 hours as needed for moderate or severe pain have been electronically sent to patient's pharmacy [facility] [address] [facility], [place] -Patient should follow up with primary care doctor 05/29/2019 11:20 AM Provider Víctor Langford MD Department Family Practice [facility] in case of any further blood culture results from 05/21/19 or 05/23/19 which may change course of antibiotic treatment or if further symptoms of fever and back pain when on cefdinir antibiotic Transaminitis (resolving) -elevated ALT and alkaline phosphatase on presentation; ALT has normalized -no abdominal pain -Patient should follow up with primary care doctor to repeat liver enzyme tests History of hemorrhoids -no acute decrease in blood count so far -Patient should follow up with primary care doctor to repeat CBC other hospital imaging results on admission day Abdomen CT: There are no acute infectious or inflammatory findings seen in the abdomen or pelvis Lumbar spine MRI: No evidence of discitis or osteomyelitis. Mild multilevel spondylytic changes CXR: No active disease in the chest Cervical Spine CT: No fractures within the cervical spine Head CT: No acute intracranial abnormality DVT prophylaxis: Lovenox daily was given as DVT prophylaxis daily during hospital stay Discharge Diagnosis: gram negative bacteremia (E.coli bacteremia) from suspected urinary tract infection, Transaminitis (resolving), History of hemorrhoids Total Time Total Time Spent Total Time Spent (In Minutes): 40 minutes Total Time Includes: Examination of the Patient, Discharge Planning, Medication Reconciliation and Communication With Other Providers Discharge Plan Discharge Items Patient Disposition: Home - Self-Care Reason For Visit: BACTEREMIA Discharge Diagnosis: gram negative bacteremia (E.coli bacteremia) from suspected urinary tract infection, Transaminitis (resolving), History of hemorrhoids Condition: Good Discharge Goals: Improve disease control Activity: Resume your previous activity Non-emergency contact: Primary Care Provider Call non-emergency contact if: you have any medication questions Follow-up/Referrals: Víctor Langford MD [Primary Care Provider] - Diet: Regular Addtl Provider Instructions: gram negative bacteremia (E.coli bacteremia) from suspected urinary tract infection -53-year-old female with gram-negative bacteremia, suspect urinary tract focus given flank pain and other symptoms -Urine Cultures may be falsely negative because of prior antibiotic use as outpatient -patient was started on empiric cefepime on admission, gram negative bacteremia speciated to E.coli that is resistant to Ampicillin/Gentamicin/Bactrim and also blood culture growing Probable anaerobic gram positive cocci -as per recent ID recommendations,continue cefepime for now -a repeat second blood culture sent on 05/23/19 with no growth to date -as per infectious disease recommendations, patient may be transitioned to oral Omnicef (cefdinir) 300mg BID to complete 14 days -patient will get night time dose of cefepime on 05/24/19 and then she is requesting to be discharged to take oral Omnicef (cefdinir) 300mg BID to complete 14 days at home. Prescriptions of antibiotic including anti- inflammatories of acetaminophen 325 mg every 6 hours as needed for pain or fever and ibuprofen 200 mg every 6 hours as needed for moderate or severe pain have been electronically sent to patient's pharmacy [facility] [address] [facility], [place] -Patient should follow up with primary care doctor 05/29/2019 11:20 AM Provider Víctor Langford MD Department Family Practice [facility] in case of any further blood culture results from 05/21/19 or 05/23/19 which may change course of antibiotic treatment or if further symptoms of fever and back pain when on cefdinir antibiotic Transaminitis (resolving) -elevated ALT and alkaline phosphatase on presentation; ALT has normalized -no abdominal pain -Patient should follow up with primary care doctor to repeat liver enzyme tests History of hemorrhoids -no acute decrease in blood count so far -Patient should follow up with primary care doctor to repeat CBC other hospital imaging results on admission day Abdomen CT: There are no acute infectious or inflammatory findings seen in the abdomen or pelvis Lumbar spine MRI: No evidence of discitis or osteomyelitis. Mild multilevel spondylytic changes CXR: No active disease in the chest Cervical Spine CT: No fractures within the cervical spine Head CT: No acute intracranial abnormality Prescriptions: New cefdinir 300 mg capsule 300 mg PO BID 14 Days Qty: 28 RF: 0 acetaminophen 325 mg tablet 325 mg PO Q6H PRN (Reason: fever or pain) 10 Days Qty: 40 RF: 0 ibuprofen 200 mg Tablet 200 mg PO Q6H PRN (Reason: moderate to severe pain) 10 Days Qty: 40 RF: 0 No Action No Known Home Medications RF: 0 Stand-Alone Forms: [facility] Discharge Orders: Discharge Order (Routine); Ordered 05/24/19 Ordered By: Oscar Giraldo Admission Data Admit Date/Time: 05/22/19 01:45 Attending Provider: Oscar Giraldo Admit Provider: Kurt Sims Primary Care Provider: Víctor Langford Other Providers: Kurt Sims ; Jonathan Garner Service: Medical Other Pending Studies at Discharge: Yes (blood cultures)
[2019-05-24 15:52] VITALS: BP 100/65; PULSE 82; TEMP 98.2; O2SAT 94
[2019-05-24] MEDS: IBUPROFEN 200 MG TAB PO PRN (16:29)
== END 2019-05-24 19:12 | disposition home or self-care (01) | DRG 690 ==
LOC: ED 23:46 → 3N 05-22 01:45
DX: Z16.29 Resistance to other single specified antibiotic; Z16.11 Resistance to penicillins; R78.81 Bacteremia; N39.0 Urinary tract infection, site not specified; B96.20 Unspecified Escherichia coli [E. coli] as the cause of diseases classified elsewhere; Z88.0 Allergy status to penicillin